=== PATIENT | male | born 1945 | race Caucasian/White ===

== ENCOUNTER → 2017-07-13 | Day surgery (SDC) | payer MEDICARE, OTHER ==
[2017-07-13] VITALS (14 sets, daily range): BP systolic 137–180; BP diastolic 66–99; PULSE 58–62; RESP 6–20; O2SAT 96–99
[~2017-07-13] VITALS: Ht 182.9 cm; Wt 160.4 kg
[~2017-07-13] MED LIST: AMLO5TAB2 PO; Acetaminophen IV 1,000 mg IV ONE; Atropine 0.4 mg/mL Inj IVPUSH PRN; Belladonna Alk-Opium 60 mg Rectal Suppository RECTAL ONE; CALC0.257 PO; CeFAZolin Inj 3 GM in IV Premix IV ONE; EPHEDrine Sulfate 50 mg/mL Inj IVPUSH PRN; FUR20 PO; GABA-502 PO; GLIP2.5T2 PO; Heparin 10,000 Unit/1,000 mL NS Premix IV ONE; INSU100I13 SUBQ; LOVA40TA PO; Labetalol 5 mg/mL 20 mL Inj IV PRN; Lactated Ringer's 1,000 ML IV ONE; Lactated Ringer's 1,000 ML IV SCH; Lactated Ringer's 500 ML IV PRN; METO-274 PO; MetoCLOpramide 5 mg/mL 2 mL Inj IVPUSH PRN; MetoCLOpramide 5 mg/mL 2 mL Inj ONE; Ondansetron 2 mg/mL 2 mL Inj IVPUSH PRN; Phenylephrine 10,000 mCg/mL Inj IVPUSH PRN; Propofol 10 mg/mL 20 mL Inj ONE; Rocuronium 10 mg/mL 5 mL Inj ONE; Succinylcholine Chloride 20 mg/mL 5 mL Inj ONE; TAMS0.4C98 PO; TRAM50TA2 PO; WARF5TAB7 PO; fentaNYL-PF 50 mCg/mL 2 mL Inj IVPUSH PRN; fentaNYL-PF 50 mCg/mL 2 mL Inj ONE
--- NOTE | 2017-07-13 10:40 | DRSVH ---
PROCEDURE: X-RAY KUB ([id number]) INDICATIONS: KIDNEY STONE TECHNIQUE: One view of the abdomen acquired. COMPARISON: [facility], CR, XR KUB, 07/31/2016, 12:23. [facility], CR, XR KU B, 06/04/2016, 12:16. [facility], CT, CT KUB, 06/25/2017, 10:34. [facility], CR, XR KUB, 10/29/2016, 14:03. FINDINGS: Surgical changes and devices: None. Bowel: Bowel gas pattern is normal. Soft tissues: No suspicious abdominal calcifications. Visualized solid organ contours appear normal in size. Several pelvic calcifications are present, several which on the left than possibly represe nt the distal ureteral stone seen on previous CT KUB. Bones: No suspicious bony lesions. IMPRESSION: Pelvic calcifications, several of which on the left could represent distal ureteral stone s as was seen on prior CT KUB. Dictated by: [place] DE SOUZAA Interpreted: Vernon Ladd MD on 07/13/2017 at 10:26 Approved by: Norbert Ladd M.D. on 07/13/2017 at 10:37
--- NOTE | 2017-07-13 10:57 | PCM.HPANE ---
Patient Data Surgeon Admitting Provider: Attending Provider:Kyara Cody MD Primary Care Physician:Michelle Ham Other Provider:Ann Gavin Anesthesia Reason for Visit Bilateral Ureteral Stones, Renal Failure Ht/WT & BMI Height (Feet): 6 Height (Inches): 0 Weight (Kilograms): 160.4 Body Mass Index 47.00 Allergies Coded Allergies: No Known Allergies (Verified Allergy, Unknown, 07/08/17) Past Anesthesia History Anesthesia History: Denies:: Abnormal Airway, Anesthesia Reactions, Difficult Intubation, Fam Anesthesia Reaction, Fam Malignant Hypertherm, Malignant Hyperthermia Diabetes History Hx Diabetes?: Yes Type of Diabetes: Type II Glycemic Control: Insulin & Oral Medication Current Bedside Blood Glucose: 120 MRSA MRSA: No Medications Blood Thinner: Coumadin Last Dose Blood Thinner: Jul 08, 2017 Hypertension Medication: Yes (Metoprolol) Home Meds Incl Beta Roge: Yes Date Beta Roge Taken: Jul 12, 2017 Time Beta Roge Taken: 2229 Reported Medications Glipizide ER 2.5 Mg Tab.er.242.5 Mg PO DAILY #90 07/13/17 Insulin Glargine (Lantus U100 Solostar Insulin Pen)100 Unit/1 Ml Insuln.pen28 Unit SUBQ HS #1 PENINJ Ref 0 07/08/17 Tamsulosin (Flomax)0.4 Mg Capsule0.4 Mg PO BID Ref 0 07/08/17 Calcitriol (Rocaltrol)0.25 Mcg Capsule0.25 Mcg PO DAILY 07/08/17 Gabapentin 300 Mg Fhagujd320 Mg PO BID Ref 0 05/23/16 Amlodipine 5 Mg Tablet5 Mg PO DAILY Ref 0 05/23/16 Warfarin Sodium 5 Mg Tablet5 Mg PO DAILY 30 Days Ref 0 05/14/16 Tramadol 50 Mg Cixnfn41 Mg PO BID Ref 0 05/14/16 Metoprolol Succinate ER 100 Mg Tab.er.61p398 Mg PO DAILY Ref 0 05/14/16 Lovastatin 40 Mg Sqwsoc11 Mg PO HS #30 TABLET Ref 0 05/14/16 Furosemide 20 Mg Tab20 Mg PO DAILY 30 Days Ref 0 05/14/16 Discontinued Reported Medications Tamsulosin (Flomax)0.4 Mg Capsule0.8 Mg PO DAILY Ref 0 07/08/17 Insulin Glargine (Lantus U100 Solostar Insulin Pen)100 Unit/1 Ml Insuln.pen14 Unit SUBQ QPM BLOOD SUGAR #1 PENINJ Ref 0 07/08/17 Insulin Detemir (Levemir Flextouch)100 Unit/1 Ml Insuln.pen14 Unit SQ HS 05/29/16 Glipizide ER 2.5 Mg Tab.er.242.5 Mg PO QAM 05/23/16 History History of ENT Problems?: No HEENT History: Denies:: Abnormal Airway Difficult Intubation Dysphagia Hearing Problem Sinus Problem TMJ Denture Type: Full- Upper Full- Lower Teeth Condition: Missing Teeth Hx of Heart Problems?: Yes Cardiovascular History: Positive for:: Atrial Fibrillation Cardiac Surgery (pacemaker for SSS) Hypertension (HYPERLIPIDEMIA) Irregular Heartbeat Pacemaker (SICK SINUS SYNDROME) Denies:: Edema Heart Murmur (ECHO 06/2014 EF 60-65%) Valvular Heart Disease Hx of Respiratory Problem?: Yes Respiratory History: Positive for:: Dyspnea (PLAZA) Use of C-PAP Machine (AKIKO+ W/ CPAP) Denies:: Asthma Emphysema Oxygen Administration Pneumonia Tuberculosis Use of Inhalers / NEBS Hx Neurologic Problems?: No Neurological History: Denies:: Alzheimer's Disease CVA Dementia Dizziness Headaches Parkinson's Disease Seizures TIA Hx of GI Problems?: No Hx of Problems?: Yes Genitourinary History: Positive for:: Kidney Stones (LT URETERAL STONE= CURRENT PROBLEM S/P MULT CYSTO/STENT/ESWL) Denies:: HX of Hemodialysis HX of Peritoneal Dialysis: No Male Hx: Denies:: Prostate Problems Scrotal Mass Testicular Surgery Skin History: Denies:: History Skin Disorders? Pressure Ulcers Hx Musculoskeletal Problems?: Yes Musculoskeletal History: Positive for:: Osteoarthritis Denies:: Back Injury Degenerative Joint Fibromyalgia Joint Replacement Musculoskeletal Trauma Myasthenia Gravis Rheumatoid Arthritis Systemic Lupus Hx of Psycho/Social Problems?: No Hx Surgeries?: Yes (pacemaker, cysto/stent, strabismus, tonsils) Hx Any Other Health Problems?: Yes Other History: Positive for:: Hospitalization Denies:: Cancer Endocrine Disease Thyroid Disease History Blood Transfusions: Positive for:: Accept Blood Products? Denies:: Blood Transfusions Hx Diabetes: YesBedside Blood Glucose: 120 Hx Alcohol Use: NoHx Substance Use: No Smoking Status: Former Smoker Have You Smoked inLast 12 mo: Yes (QUIT RECENTLY) Stop/Bang Risk Assessment Category Category 1A: Patient has history of documented sleep apnea, and HAS NOT received any narcotic, sedative or anesthesia administration during this stay. Category 1B: Patient has history of documented sleep apnea, and HAS received any narcotic , sedative or anesthesia administration during this stay Category 2: Patient has SUSPECTED Obstructive Sleep Apnea, and HAS received any narcotic , sedative or anesthesia administration during this stay. Category 3: Patient has SUSPECTED Obstructive Sleep Apnea and HAS NOT received narcotic, sedative or anesthesia administration during this stay. Category 4: Outpatient in Procedural Areas with known sleep apnea or who screen positive for High Risk via the STOP/BANG questionnaire. Exam Exam Vital Signs Vital Signs Date Time Temp Pulse Resp B/P Pulse Ox O2 Delivery O2 Flow Rate FiO2 07/13/17 10:32 CPAP/BIPAP General Appearance: Alert, Oriented X3, Cooperative, Mild Distress (SOB with exertion) HEENT/AIRWAY: MP 2, Neck Movement (FROM), Mouth Opening (3 FBMO) Lungs: Clear to Auscultation, Diminished Heart: Exam Unremarkable, Regular Rate/Rhythm, No Murmurs/Rubs/Gallops Meds/Labs/Diagnostics Admission Meds Current Medications Lactated Ringer's (Lr) 1,000 ml @ 120 mls/hr Q8H20M ONCE IV Last administered on 07/13/17t 09:57; Start 07/13/17 at 05:00; Stop 07/13/17 at 13:19 Bedside Blood Glucose: 120 Labs Test 07/13/17 10:28 Plan Impression Patient chart reviewed, patient interviewed and anesthestic plan with risks, benefits, and alternatives discussed, and informed consent obtained. NPO per Anesth. Guidelines: Yes ASA Physical Status: ASA3 Severe Disease (BMI 48) Anesthetic Support Modalities: Salmon Scope Anesthetic Plan: GA Bene/Risks/Altern/Consents: Yes HP Complete Prior to Induction: Yes Jb Gould MD Jul 13, 2017 10:37
[2017-07-13 11:27] LABS: INR 0.99 ratio
--- NOTE | 2017-07-13 13:38 | PCM.ANEP1 ---
Post Anesthesia PACU Phase 1 Assessment Vital Signs Vital Signs Date Time Temp Pulse Resp B/P Pulse Ox O2 Delivery O2 Flow Rate FiO2 07/13/17 13:04 60 16 139/72 96 Room Air 07/13/17 12:40 36.0 60 15 137/84 97 Room Air 07/13/17 12:35 60 16 162/94 96 Room Air 07/13/17 12:30 60 17 178/98 96 Room Air 07/13/17 12:25 60 12 168/95 99 Simple Mask 8 07/13/17 12:20 60 9 172/86 99 Simple Mask 8 07/13/17 12:18 36.2 60 6 180/99 99 Simple Mask 8 07/13/17 10:39 35.8 62 20 144/78 97 Room Air 07/13/17 10:32 CPAP/BIPAP Anesthetic Administered: GA Level of Alertness: Awake, talking SINGLETON's with Equal Strength: Yes Pain: No Nausea or Vomiting: No CV Function & Hydration Stable: Yes Airway Device: n/a Oxygen Delivery: Room Air Lungs: Clear to Auscultation, Diminished Dermatome Level: Full Sensation PACU Phase 2 Assessment Complications: No Follow up Care: N/A Patient Instructions Provided: N/A Jb Gould MD Jul 13, 2017 13:38
--- NOTE | 2017-07-13 15:56 | DRSVH ---
PROCEDURE: NEPHROSTOMY INSERT CATH (PNL) 1. Left nephrostomy tube placement. 2. Left antegrade pyelogram. 3. Ultrasound guidance for renal access. 4. Conscious sedation for 37 minutes. INDICATIONS: Ureteral traction TECHNIQUE: The indications, alternatives, benefits, risks, and complications of the procedure were e xplained to the patient and any family members present. Informed written consent was obtained and pl aced in the chart. The patient was brought to the angiography suite. Conscious sedation was adminis tered intravenously by senior care staff, with continuous cardiorespiratory monitoring. The patient was placed in the oblique position on the angiography table. The back was prepped and dr aped in a sterile fashion, with 1% lidocaine used for local anaesthesia. A left interpolar posterior renal calyx was accessed using sonographic guidance with an Accustick set. A small amount of air wa s instilled to confirm positioning of the needle. Contrast was injected through the Accustick needle for an antegrade pyelogram. An 0.018 Mandrill wire was advanced into the renal pelvis and exchanged for an Accustick dilator/sheath. A 035 wire was advanced into the proximal to mid ureter. After di latation of the nephrostomy tract, a 8 Singaporean pigtail catheter was advanced under fluoroscopic guidan ce. The catheter was pigtailed in the renal pelvis and locked. A small amount of contrast was injec lana through the nephrostomy catheter. Catheter was secured to the skin surface. The patient was stable during the course of the procedure. FLUOROSCOPY TIME: 5 minutes. COMPARISON: None. FINDINGS: Left hydronephrosis is present, severe in degree. At the conclusion of the procedure, the pigtail catheter is within the renal pelvis. IMPRESSION: Successful placement of left nephrostomy tube without complication. Dictated by: Isaiah Ordaz M.D. on 07/13/2017 at 15:53 Approved by: Isaiah Ordaz M.D. on 07/13/2017 at 15:54
--- NOTE | 2017-07-13 16:35 | NUR ---
[facility] DISCHARGE PT WAS RECEIVED TO [facility] AFTER NEPHROSTOMY TUBE PLACEMENT. VSS AND PT AWAKE AND TAKING PO FOOD AND FLUIDS. ORDERS CLARIFIED WITH DR SOLIS. PT IS TO CALL HIS OFFICE IN THE AM FOR FURTHER INSTRUCTIONS. TO DISCONTINUE PEPE IN AM. WAS INSTRUCTED HOW TO FLUSH NEPHROSTOMY TUBE AND SUPPLIES SENT HOME WITH PT. IV WAS DISCONTINUED IN LEFT ARM, CANNULA INTACT. PT WAS DISCHARGED IN STABLE CONDITION AT 1630 WITH .
[2017-07-16 09:10] LABS: Stone Color Brown (.)
--- NOTE | 2017-07-16 21:49 | OP ---
[address] [address] OPERATIVE REPORT PATIENT: PETRA MENDOZA : 1945 MR#: [id number] ADMIT: 07/13/2017 JOB ID: [id number] DATE OF SURGERY: PREOPERATIVE DIAGNOSIS(ES): 1. Bilateral distal ureteral calculi (one on the right, three on left). 2. Chronic kidney disease. 3. Acute renal injury superimposed on chronic renal disease. 4. History of nephrolithiasis. POSTOPERATIVE DIAGNOSIS(ES): 1. Bilateral distal ureteral calculi (one on the right, three on left). 2. Chronic kidney disease. 3. Acute renal injury superimposed on chronic renal disease. 4. History of nephrolithiasis. 5. Distal ureteral stricture. SURGEON: Kyara Cody MD. ANESTHESIOLOGIST: Jb Gould MD ANESTHESIA: General endotracheal. FINDINGS: Urethra normal. External sphincter. Prostate has 4.5-5 cm length with obstructing lateral lobe hyperplasia and elevated median bar. Orifices were normal position bilaterally. The bladder has 2+ trabeculation. No visible stone or tumor. PROCEDURE SUMMARY: The patient was positioned supine and was administered general inhalational anesthesia. He was then repositioned in semilithotomy and the lower abdomen, genitalia, and groin were prepped and draped in sterile fashion. Was then advanced to the lower urinary tract and with direct visualization, the findings as described above. Next, a 0.35 Glidewire was advanced into the right ureteral orifice and more proximally. Over this, a 15-Vincentian x 6 cm dilating catheter was positioned across the right ureterovesical junction. The balloon was then inflated to 18 atmospheres and held in position for 5 minutes after which the balloon was deflated and backloaded off of the Glidewire. The semi-rigid ureteroscope was then introduced and advanced into the right distal collecting system whereupon the stone was encountered. A three wire helical basket was then selected and a 3-Vincentian 0 tip and this was used to carefully engage the stone and remove it without incident. Decision was made to not stent the right system. Next, a 0.35 Glidewire was then used to cannulate the left collecting system and despite multiple attempts, the Glidewire could not be manipulated more proximally. The ureteroscope was then again utilized and was passed to the lower urinary tract and then into the left ureteral orifice and was advanced just a few millimeters whereupon the obstruction was encountered. Under direct visualization, I tried to pass a 0.35 Glidewire wire without success. At this point, the bladder was drained completely. All instrumentation was removed and the procedure was terminated, and the patient was then repositioned in supine and was awakened, transferred to the [facility], and transported to Recovery in stable condition. Dr. Isaiah Ordaz was then contacted immediately and was provided a summarization of this patient's history and physical state, the challenges met within the operating room, and desirability of gaining immediate access to the left collecting system for which Dr. Ordaz promptly responded and provided consultation with anticipated placement of left percutaneous nephrostomy.
== END | disposition home or self-care (01) ==
LOC: SAS 09:29
PROVIDERS: ATTEND Specialist
DX: N20.1 Calculus of ureter (principal); N18.9 Chronic kidney disease, unspecified; N17.9 Acute kidney failure, unspecified; N13.5 Crossing vessel and stricture of ureter without hydronephrosis; N40.1 Benign prostatic hyperplasia with lower urinary tract symptoms; R33.9 Retention of urine, unspecified; I10 Essential (primary) hypertension; E78.5 Hyperlipidemia, unspecified; I48.91 Unspecified atrial fibrillation; G47.30 Sleep apnea, unspecified; Z95.0 Presence of cardiac pacemaker; Z79.01 Long term (current) use of anticoagulants; Z79.84 Long term (current) use of oral hypoglycemic drugs; Z79.4 Long term (current) use of insulin
CPT/HCPCS: 36415; 50395; 52352; 74000; 74485; 76000; 82360; 85610; 99152; C1729; C1887; C1894; J0131; J0330; J0690; J1644; J2250; J2704; J2765; J3010; J7120; Q9967

== ENCOUNTER → 2017-07-17 | Day surgery (SDC) | payer MEDICARE, OTHER ==
[~2017-07-17] MED LIST changes: -Acetaminophen IV 1,000 mg IV ONE; -Atropine 0.4 mg/mL Inj IVPUSH PRN; -Belladonna Alk-Opium 60 mg Rectal Suppository RECTAL ONE; -CeFAZolin Inj 3 GM in IV Premix IV ONE; -EPHEDrine Sulfate 50 mg/mL Inj IVPUSH PRN; -Heparin 10,000 Unit/1,000 mL NS Premix IV ONE; -Labetalol 5 mg/mL 20 mL Inj IV PRN; -Lactated Ringer's 1,000 ML IV ONE; -Lactated Ringer's 1,000 ML IV SCH; -Lactated Ringer's 500 ML IV PRN; -MetoCLOpramide 5 mg/mL 2 mL Inj IVPUSH PRN; -MetoCLOpramide 5 mg/mL 2 mL Inj ONE; -Ondansetron 2 mg/mL 2 mL Inj IVPUSH PRN; -Phenylephrine 10,000 mCg/mL Inj IVPUSH PRN; -Propofol 10 mg/mL 20 mL Inj ONE; -Rocuronium 10 mg/mL 5 mL Inj ONE; -Succinylcholine Chloride 20 mg/mL 5 mL Inj ONE; -fentaNYL-PF 50 mCg/mL 2 mL Inj IVPUSH PRN; -fentaNYL-PF 50 mCg/mL 2 mL Inj ONE
--- NOTE | 2017-07-17 12:19 | NUR ---
Patient arrived to [facility] at 11:00, he understood this visit to be a wound check. Pt is scheduled for nephrostomy replacement/exchange.Dr Marcial is here to consult with patient. She flushed nephrostomy tube with saline with noted leaking at site on attempt to flush. Dr Marcial would like to check placement prior to decision regarding procedure.Pt is amenable to waiting and understands need to check placement first and realizes that he may need to have this tube replaced today.
--- NOTE | 2017-07-17 12:51 | NUR ---
Patient returned from Xray, nephrostomy tube fell out. On return to [facility], old dressing removed, area cleaned with chloraprep and new gauze drsg applied secured with opsite. Dr Marcial is in the process of contacting Dr Cody.
--- NOTE | 2017-07-17 13:39 | NUR ---
Ultrasound completed at bedside.Pt rescheduled to have ultrasound of left kidney repeated on 07/21 with possible nephrostomy tube insertion on 07/21.Pt instructions given.Pt discharged ambulatory.
--- NOTE | 2017-07-17 17:14 | DRSVH ---
PROCEDURE: X-RAY NEPHROSTOGRAM INDICATIONS: Knee COMPARISON: None. FINDINGS: The right percutaneous nephrostomy tube was injected with contrast which demonstrates posi tioning of the tube tip within the soft tissues adjacent to the kidney. Percutaneous tube tip within the soft tissues adjacent to the kidney. IMPRESSION: Percutaneous nephrostomy distal tube tip positioned abnormally within the soft tissue ad jacent to the kidney. Upon setting the patient upright, the catheter completely came out. Dictated by: [place] RAMSEY Interpreted: Livia Marcial MD on 07/17/2017 at 14:24 Approved by: Livia Marcial M.D. on 07/17/2017 at 17:12
--- NOTE | 2017-07-17 17:17 | DRSVH ---
PROCEDURE: US RENAL SONOGRAM INDICATIONS: PULLED LEFT NEPHROSTOMY TUBE TECHNIQUE: Real-time scanning was performed of the kidneys and bladder, with image documentation. COMPARISON: [facility], US, US RENAL, 06/19/2017, 12:12. [facility], CT, CT KUB, 06/25/2017, 10:34. FINDINGS: Kidneys: Exam is limited to the left kidney. Right kidney measures 9.5 cm in length and renal corti hai thickness is less than 1.0 cm. Left renal cyst redemonstrated largest measuring up to 5.7 cm. Th ere is mild left hydronephrosis which is markedly reduced in extent when compared to the nephrogram f rom 07/13/17. IMPRESSION: Limited exam of the left kidney demonstrating mild left hydronephrosis and left renal cys t redemonstrated. Plan: The patient will return on 07/21 for a repeat left renal ultrasound. If there is a marked reaccumulatio n of urine within left renal collecting system, (suggesting residual renal function of left kidney) t he patient will undergo repeat percutaneous nephrostomy tube placement. This plan was discussed with Dr. Cody on 07/17/17. Approved by: Livia Marcial M.D. on 07/17/2017 at 17:15
== END | disposition home or self-care (01) ==
LOC: SOUO 11:21
PROVIDERS: ATTEND Radiology Vascular & Interventional Radiology
DX: N99.528 Other complication of incontinent external stoma of urinary tract (principal); N13.30 Unspecified hydronephrosis
CPT/HCPCS: 50431; 76770; Q9967

== ENCOUNTER → 2017-07-21 | Day surgery (SDC) | payer MEDICARE, OTHER ==
[2017-07-21] VITALS (8 sets, daily range): BP systolic 144–167; BP diastolic 78–124; PULSE 58–92; RESP 16–18; O2SAT 95–98
[~2017-07-21] VITALS: Ht 180.3 cm; Wt 161.4 kg
[~2017-07-21] MED LIST changes: +CeFAZolin Inj 3 GM in IV Premix IV ONE; +Heparin 10,000 Unit/1,000 mL NS Premix IV ONE; +fentaNYL-PF 50 mCg/mL 2 mL Inj ONE
--- NOTE | 2017-07-21 07:06 | NUR ---
Patient admitted for possible left nephrostomy tube insertion. Plan is for him to have a left kidney ultrasound first to determine extent of hydronephrosis and then a decision as to insertion of nehprostomy tube.Patient was here last thursday and nephrostomy tube fell out. Pt has been NPO and has his to drive him home.
--- NOTE | 2017-07-21 08:59 | DRSVH ---
PROCEDURE: US RENAL SONOGRAM INDICATIONS: CHRONIC KIDNEY DISEASE TECHNIQUE: Real-time scanning was performed of the kidneys and bladder, with image documentation. COMPARISON: [facility], US, US RENAL, 07/17/2017, 13:12. FINDINGS: Kidneys: Kidneys are normal in size. Right kidney measures 12.0 cm long; left kidney measures 11.5 cm long. Right renal cortical thickness is 1.2 cm; left renal cortical thickness is 0.7 cm. Renal c ortical echotexture is normal. There is stable moderate left-sided hydronephrosis with no shortening is identified. There is a 4.7 cm left renal cyst. Bladder: Pre-void bladder volume is 495 mL. Post-void residual is 200 mL. Pre-void images demonstr ate no intraluminal masses or stones. Ureteral jets are not identified. IMPRESSION: 1. Stable moderate left-sided hydronephrosis with no obstructing lesion identified. There is mild lef t renal cortical thinning relative to the right. Ureteral jets are not identified. 2. Post void residual in the bladder measuring 200 cc. Dictated by: Bernardino Hennessy M.D. on 07/21/2017 at 8:54 Approved by: Bernardino Hennessy M.D. on 07/21/2017 at 8:57
--- NOTE | 2017-07-21 12:00 | DRSVH ---
PROCEDURE: NEPHROSTOMY INSERT CATH (PNL) 1. Left nephrostomy tube placement. 2. Left antegrade pyelogram. 3. Ultrasound guidance for renal access. 4. Conscious sedation for 34 minutes. INDICATIONS: HYDRONEPHROSIS TECHNIQUE: The indications, alternatives, benefits, risks, and complications of the procedure were e xplained to the patient and any family members present. Informed written consent was obtained and pl aced in the chart. The patient was brought to the angiography suite. Conscious sedation was adminis tered intravenously by prison staff, with continuous cardiorespiratory monitoring. The patient was placed in the oblique position on the angiography table. The back was prepped and dr aped in a sterile fashion, with 1% lidocaine used for local anaesthesia. A left interpolar posterior renal calyx was accessed using sonographic guidance with an Accustick set. A small amount of air wa s instilled to confirm positioning of the needle. Contrast was injected through the Accustick needle for an antegrade pyelogram. An 0.018 Mandrill wire was advanced into the renal pelvis and exchanged for an Accustick dilator/sheath. A 035 wire was advanced into the proximal to mid ureter. After di latation of the nephrostomy tract, a 8 Romanian pigtail catheter was advanced under fluoroscopic guidan ce. The catheter was pigtailed in the renal pelvis and locked. A small amount of contrast was injec lana through the nephrostomy catheter. Catheter was secured to the skin surface. The patient was stable during the course of the procedure. FLUOROSCOPY TIME: 1.4 minutes. COMPARISON: [facility], , NEPHROSTOMY INSERT CATH (PNL), 07/13/2017, 14:01. FINDINGS: Left hydronephrosis is present, moderate in degree. At the conclusion of the procedure, th e pigtail catheter is within the renal pelvis. IMPRESSION: Successful placement of left nephrostomy tube without complication. Dictated by: Isaiah Ordaz M.D. on 07/21/2017 at 11:42 Approved by: Isaiah Ordaz M.D. on 07/21/2017 at 11:58
--- NOTE | 2017-07-21 13:00 | NUR ---
Discharge instructions reviewed with patient.Catheter flushed with 10cc saline.Pt's has been doing this so she is knowledgeable in this. I reviewed with her how to change the dressing and the drainage bag. Supplies ordered for him from online pharmacies and I gave him 2 dressings and a bag to tide him over until he receives supplies in mail.Pt discharged ambulatory.
== END | disposition home or self-care (01) ==
LOC: SOUO 07-20 00:17
PROVIDERS: ATTEND Radiology Diagnostic Radiology
DX: N13.2 Hydronephrosis with renal and ureteral calculous obstruction (principal); Z95.0 Presence of cardiac pacemaker; Z79.01 Long term (current) use of anticoagulants; Z79.4 Long term (current) use of insulin; Z79.84 Long term (current) use of oral hypoglycemic drugs; N40.0 Benign prostatic hyperplasia without lower urinary tract symptoms; E11.9 Type 2 diabetes mellitus without complications; R33.9 Retention of urine, unspecified; N18.9 Chronic kidney disease, unspecified; I12.9 Hypertensive chronic kidney disease with stage 1 through stage 4 chronic kidney disease, or unspecified chronic kidney disease
CPT/HCPCS: 50395; 74485; 76770; 99152; C1729; C1769; C1894; J1644; J2250; J3010; Q9967